=== PATIENT | male | born 1980 | race Caucasian/White ===

== ENCOUNTER → 2021-09-07 | Day surgery (SDC) | payer OTHER ==
[~2021-09-07] MED LIST: ADDERALL 20 MG20 MG PO; TRINTELLIX10 MG PO
== END | disposition home or self-care (01) ==
LOC: ADM 09-05 08:15 → CIR.AMB 07:06
PROVIDERS: ATTEND Surgery
DX: K40.90 Unilateral inguinal hernia, without obstruction or gangrene, not specified as recurrent (principal); Z53.29 Procedure and treatment not carried out because of patient's decision for other reasons; Z20.822 Contact with and (suspected) exposure to COVID-19

== ENCOUNTER 2021-11-03 05:30 | Day surgery (SDC) | payer OTHER ==
[2021-11-03] MEDS ORDERED: MIRALAX17 GM PO (07:20)
[2021-11-03] MEDS ORDERED: TYLENOL ARTHRI650 MG PO (07:20)
[2021-11-03] MEDS ORDERED: ULTRAM50 MG PO (07:20)
[2021-11-03] MEDS ORDERED: NEURONTIN300 MG PO (07:20)
== END 2021-11-03 12:55 | disposition home or self-care (01) ==
LOC: CIR.AMB 05:30
PROVIDERS: ATTEND Surgery
DX: K40.90 Unilateral inguinal hernia, without obstruction or gangrene, not specified as recurrent (principal); K42.9 Umbilical hernia without obstruction or gangrene; F12.90 Cannabis use, unspecified, uncomplicated; Z20.822 Contact with and (suspected) exposure to COVID-19